=== PATIENT | male | born 2000 | race Caucasian/White ===

== ENCOUNTER 2025-07-04 19:16 | Emergency (ER) | payer SELFPAY ==
[2025-07-04] MEDS: Ketorolac 30 MG/ML SDV IM ONE (20:20)
== END 2025-07-04 21:32 | disposition home or self-care (01) ==
LOC: JP.ED 19:16
DX: R07.89 Other chest pain (principal); G43.909 Migraine, unspecified, not intractable, without status migrainosus; F41.9 Anxiety disorder, unspecified; I10 Essential (primary) hypertension; J45.909 Unspecified asthma, uncomplicated; E11.9 Type 2 diabetes mellitus without complications; K21.9 Gastro-esophageal reflux disease without esophagitis; Z86.16 Personal history of COVID-19; Z88.8 Allergy status to other drugs, medicaments and biological substances; Z79.899 Other long term (current) drug therapy; Z79.84 Long term (current) use of oral hypoglycemic drugs
CPT/HCPCS: 96372; 99284; J1885